=== PATIENT | female | born 1955 | race Caucasian/White ===

== ENCOUNTER 2021-03-08 17:51 | Inpatient (IN) | payer MEDICARE, BC ==
[~2021-03-08] VITALS: Ht 170.2 cm; Wt 55.1 kg
[2021-03-08] VITALS (11 sets, daily range): BP systolic 77–127; BP diastolic 40–81; BMI 20.2
[2021-03-08 18:43] LABS: BASOPHILS 0.2 % (0-2); HEMATOCRIT 41.5 % (36.0-48.0); HEMOGLOBIN 13.9 g/dL (12-16); IMMATURE GRANULOCYTES 0.3 % (0-5); LYMPHOCYTE ABS# 2.34 10x3/uL (1.18-3.74); LYMPHOCYTES 38.1 % (15-50); MCH 34.3 pg (26.0-34.0); MCHC 33.5 g/dL (31.0-37.0); MCV 102.5 fL (80.0-100.0); MEAN PLATELET VOLUME 9.5 fL (7.4-10.4); MONOCYTES 3.9 % (2-11); NEUTROPHIL ABS# 3.47 10x3/uL (1.56-6.13); NEUTROPHILS 56.5 % (40-80); PLATELET COUNT 318 10x3/uL (130-400); RBC 4.05 10x6/uL (4.00-5.40); RDW 13.9 % (11.5-14.5); WBC 6.1 10x3/uL (4.8-10.8)
[2021-03-08 18:59] LABS: CALC OSMOLALITY 274 mosm/kg (275-300); CARBON DIOXIDE 24.8 mmol/L (21.0-32.0); CHLORIDE - SERUM 102 mmol/L (98-107); CREATININE - SERUM 0.9 mg/dL (0.6-1.3); GLUCOSE 82 mg/dL (74-106); POTASSIUM - SERUM 3.9 mmol/L (3.5-5.1); SODIUM 137 mmol/L (136-145); UREA NITROGEN 19 mg/dL (7-18); eGFR NON AFRICAN AMERICAN 66 mL/min (90-120)
[2021-03-08 19:11] LABS: ALBUMIN 3.8 g/dL (3.4-5.0); ALKALINE PHOSPHATASE 94 U/L (30-120); ALT (SGPT) 72 U/L (10-68); AMYLASE - SERUM 56 U/L (25-115); LIPASE 328 U/L (73-393); PROTEIN - SERUM 7.1 g/dL (6.4-8.2); TROPONIN-I < 0.017 ng/mL (0.000-0.060)
--- NOTE | 2021-03-08 20:00 | NUR ---
AROUND 193 PT BLOOD PRESSURE 84/40 MD AWARE AN DBOLUS STARTED.
[2021-03-08 21:15] LABS: APTT 28.6 SECONDS (22.8-39.4); INR 1.11 (0.85-1.17); PROTIME 13.3 SECONDS (11.6-15.0)
--- NOTE | 2021-03-08 21:43 | NUR ---
PT REPORT CALLED TO DEANNE PENA AT THIS TIME WITH VERBAL ACKNOWLEDGEMNT OBTAINED
--- NOTE | 2021-03-08 21:50 | NUR ---
PT ARRIVED FROM ER VIA STRETCHER NURSE MELANI AT BEDSIDE. PT MOVED OER TO THE ICU BED ON HER OWN. PT PLACED ON MONITOR, ADMISSION ASSESSMENT COMPLETED SEE FOR ASSESSMENT FINDINGS. PT ASKED FOR HER PHONE AND GLASSES, CALLED HER BC AND HE STATED THAT HE HAD HER PURSE, CELL PHONE AND GLASSES AT HOME WITH HIM. WILL CONTINUE TO MONITOR PT
[2021-03-08] MEDS ORDERED: PRAVASTATIN SOD10 MG PO (22:12)
[2021-03-08] MEDS ORDERED: PRISTIQ50 MG PO (22:13)
[2021-03-08] MEDS ORDERED: NORVASC2.5 MG PO (22:14)
[2021-03-08] MEDS ORDERED: LISINOPRIL20 MG PO (22:14)
[2021-03-08] MEDS ORDERED: LOPRESSOR25 MG PO (22:15)
[2021-03-08 23:37] LABS: BILIRUBIN NEGATIVE (NEGATIVE); KETONE NEGATIVE (NEGATIVE); NITRITE NEGATIVE (NEGATIVE); UROBILINOGEN NORMAL mg/dL (< 2)
--- NOTE | 2021-03-08 23:40 | NUR ---
2ND IV STARTED LEFT WRIST 18G PIV, ONE TRY, TOLERATED WELL
[2021-03-09] VITALS (23 sets, daily range): BP systolic 102–161; BP diastolic 55–94
[2021-03-09 12:06] LABS: HEMATOCRIT 36.6 % (36.0-48.0); MCH 33.9 pg (26.0-34.0); MCHC 32.8 g/dL (31.0-37.0); MCV 103.4 fL (80.0-100.0); MEAN PLATELET VOLUME 9.3 fL (7.4-10.4); RBC 3.54 10x6/uL (4.00-5.40); RDW 14.1 % (11.5-14.5)
[2021-03-09 12:19] LABS: WBC 10.5 10x3/uL (4.8-10.8)
--- NOTE | 2021-03-09 14:08 | NUR ---
PT HAS INCREASING ANXIETY AND AGITATION THROUGHOUT THE DAY. WORSENING WHEN FAMILY NOT AT BEDSIDE. ATIVAN GIVEN PRN PER ORDERS. PT CONT TO GET OUT OF BED AND VERBALIZES SHE WANTS TO LEAVE. CONFUSED AT TIMES X PLACE AND SITUATION. NOTIFIED DR AVALOS AND ORDER GIVEN TO START PRECEDEX DRIP AND CONT WITH ATIVAN PRN
--- NOTE | 2021-03-09 22:32 | NUR ---
HAS BEEN ON 1MKH PRECEDEX NOW SINCE ATIVAN ADMIN. AISSATOU WELL. WHEN AWAKENS AND ATTEMPTS TO GET OOB IS ABLE TO BE REDIRECTED TO STAY IN BED. WILL CONT TO MONITOR. PT TURNS SELF IN BED. RESP EVEN AND UNLABORRED.
[2021-03-10] VITALS (24 sets, daily range): BP systolic 125–190; BP diastolic 74–112; BMI 20.8
[2021-03-10 04:42] LABS: BASOPHILS 0 % (0-2); EOSINOPHILS 0.3 % (0-7); HEMATOCRIT 36.9 % (36.0-48.0); IMMATURE GRANULOCYTES 0.4 % (0-5); LYMPHOCYTE ABS# 0.91 10x3/uL (1.18-3.74); LYMPHOCYTES 12.6 % (15-50); MCHC 32.5 g/dL (31.0-37.0); MCV 104.5 fL (80.0-100.0); NEUTROPHIL ABS# 5.77 10x3/uL (1.56-6.13); NEUTROPHILS 79.7 % (40-80); PLATELET COUNT 234 10x3/uL (130-400); RBC 3.53 10x6/uL (4.00-5.40); RDW 14.2 % (11.5-14.5)
[2021-03-10 04:44] LABS: WBC 7.2 10x3/uL (4.8-10.8)
[2021-03-10 05:30] LABS: CALCIUM 8.4 mg/dL (8.5-10.1); CARBON DIOXIDE 22.2 mmol/L (21.0-32.0); CHLORIDE - SERUM 107 mmol/L (98-107); GLUCOSE 114 mg/dL (74-106); SODIUM 140 mmol/L (136-145)
[2021-03-10 05:36] LABS: CALC OSMOLALITY 279 mosm/kg (275-300); CREATININE - SERUM 0.6 mg/dL (0.6-1.3); UREA NITROGEN 12 mg/dL (7-18)
[2021-03-10 05:37] LABS: eGFR NON AFRICAN AMERICAN > 90 mL/min (90-120)
--- NOTE | 2021-03-10 07:30 | NUR ---
22 G PIV STARTED TO R FA. NO COMPLAINTS.
--- NOTE | 2021-03-10 07:51 | NUR ---
LAYING IN BED, RESTFUL, BUT CONFUSED. SITTER AT BEDSIDE, REPORTS FALLING ASLEEP AND OBSERVED ASLEEP (SITTER IS). DAUGHTER KAREN CALLED AND UPDATE PROVIDED. SHE REPORTS SHE HAS BEEN TRYING TO REACH THE SITTER. NOW AT BEDSIDE.
--- NOTE | 2021-03-10 07:58 | NUR ---
DR. ENGLISH MONTELONGO, NO NEW ORDERS.
--- NOTE | 2021-03-10 08:01 | HP ---
PATIENT: WES WICK MEDICAL RECORD: [id number] ACCOUNT: [id number] LOCATION:[facility] D.2303 : 53 ADMISSION DATE: 03/08/21 PCP: No PCP HISTORY AND PHYSICAL EXAMINATION REASON FOR ADMISSION: Abdominal pain. HISTORY OF PRESENT ILLNESS: The patient is a 66-year-old female with history of essential hypertension, hyperlipidemia and remote stroke. The patient also has history of peptic ulcer in the past and GERD. She states she has had no GI symptoms recently, but has had gradual weight loss over the last year. She weighed 128 pounds 06/2019. Weighs 126 pounds currently. Weighed 140 pounds 3 years ago. Her daughter saw me with her in the office over a month ago and was concerned about the amount of drinking she was doing of alcohol. Jd denies it, but does drink heavily and smokes as well. She said she had some infraumbilical abdominal pain for about a week and last night while cooking dinner, had acute onset of severe pain that brought her to her knees. It made her short of breath, radiated into her lower back. She denied change in stools, nausea or vomiting. She came to the ED where she was initially normotensive, but after morphine dropped her pressure and that resolved. Her labs were unremarkable and CTA did show evidence of distal gastric edema and pneumoperitoneum. This is concerning for ruptured viscus. She is now admitted to the ICU. At this time, is very tender to touch in the abdomen. PAST MEDICAL HISTORY: Remote CVA with negative MRI in 2012; history of cataracts; depression; GERD; peptic ulcer disease; hyperlipidemia; hypertension; postmenopausal; a metatarsal bone fracture in right foot remotely; tricuspid insufficiency; history of mild multiple sclerosis; anxiety; labial hematoma, traumatic post I&D. PAST SURGICAL HISTORY: Arthroscopic surgery on her knees. She had tubal ligation. She had leg and ankle surgery. ALLERGIES: TETRACYCLINE. SOCIAL HISTORY: Smoking habit 2 pack a day for 40 years. Drinks excessive alcohol, 4-5 glasses of wine and hard liquor daily according to family members. FAMILY HISTORY: Father of colon cancer. Paternal grandmother had breast cancer. CURRENT HOME MEDICATIONS: Pravastatin 80 mg with evening meal, amlodipine 2.5 mg daily, lisinopril 20 mg daily, tramadol 50 mg q.6 hours p.r.n. pain, Pristiq, metoprolol 25 mg daily, clopidogrel 75 mg daily, ferrous sulfate 325 mg daily, clonidine 0.1 mg p.r.n. systolic pressure over 180. REVIEW OF SYSTEMS: GENERAL: Has felt well recently. Denied any illness, except for abdominal pain. HEENT: No recent visual change, sinus congestion, sore throat. RESPIRATORY: Has mild shortness of breath on exertion. Had shortness of breath with the episode of pain that has now resolved. Denies sputum production or hemoptysis. CARDIAC: No exertional chest pain, claudication, or edema. GASTROINTESTINAL: Denies nausea or reflux symptoms. Recently severe abdominal HISTORY AND PHYSICAL [id number] SHAMIKA,WES K pain as mentioned for the last week, crescendoing last night. Denies change in stools, melena, or bright red blood per rectum. GYNECOLOGIC: No vaginal bleeding. ENDOCRINE: Denies polyuria, polydipsia, heat or cold intolerance. MUSCULOSKELETAL: Has chronic arthritis in her low back and knee. INTEGUMENT: Easy bruisability. PSYCHIATRIC: Denies depressed mood. NEUROLOGIC: No history of vascular headaches. Had remote stroke that resolved 100% with negative workup. PHYSICAL EXAMINATION: GENERAL: Alert, somewhat agitated 66-year-old female in the ICU at this time, oriented to person, place and time. VITAL SIGNS: Pulse is initially 141, now 75; respirations are 15; blood pressure is 100/52; sats 95% on room air. The patient is alert and oriented. HEENT: Her eyes are clear. Palpebral conjunctivae are pink. Sclerae are nonicteric. Oropharynx unremarkable. NECK: Supple without bruits. CHEST: Distant breath sounds without wheeze or rales. Increased AP diameter of the thoracic spine is noted. HEART: Regular rate and rhythm. ABDOMEN: Soft, but very tender to touch in the epigastric and periumbilical region. Bowel sounds are hypoactive. RECTAL: No stool in the vault. GYNECOLOGIC: Deferred. EXTREMITIES: No CCE. SKIN: She has multiple ecchymoses on her lower extremities. NEUROLOGIC: Alert, oriented to person, place and time. Cranial nerves were grossly intact. Gait was not tested. PSYCHIATRIC: Admits to some agitation and anxiety at times, but denies severe depressed mood. LABORATORY DATA: Chemistry is normal. Liver functions are normal. Troponin is normal. Lipase was 328, upper limits of normal. PT/INR is 1.1. White count 6.1 thousand, H&H are 13.9 and 41.5 respectively, MCV is 102. Platelet count is adequate 318,000. Abdominal series showed nonspecific bowel gas pattern. CT showed question of thickening of the distal gastric body, antrum, pylorus with small amount of fluids associated with first portion of the duodenum, pneumoperitoneum thought secondary to mild perforation of a peptic ulcer. ASSESSMENT: 1. Probable ruptured viscus with severe abdominal pain. 2. History of peptic ulcer disease and GERD with alcohol excess. 3. Nicotine addiction. 4. Hypertension, hyperlipidemia, remote CVA, depression, weight loss. PLAN: The patient admitted to the ICU. I discussed the case with Dr. Thakur who will see the patient this morning. She is on IV Protonix infusion currently and pain is controlled. We will hold antihypertensives currently due to relative hypotension from morphine. Further workup pending clinical course. TRANSINT:[id number] Voice Confirmation ID: [id number] DOCUMENT ID: [id number] HISTORY AND PHYSICAL [id number] WES WICK TIMOTHY MD at 0801 CC: [id number] DICTATION DATE: 03/09/21 08 OFFICE SERVICES COORDINATOR: 03/09/21 1005 ADM IN [facility] [id number] [place] [address]
--- NOTE | 2021-03-10 10:26 | NUR ---
C/O WANTING WATER. ATTEMPTED TO REORIENT, BUT SHE CANNOT UNDERSTAND. NOW SAYING SHE WANTS TO GO HOME. ATIVAN GIVEN FOR SEDATION AND TITRATED UP PRECEDEX.
--- NOTE | 2021-03-10 10:38 | NUR ---
BP NOW UP TO 190/100. CATAPRES 0.1 MG/DAY FOR 1 WEEK APPLIED TO MEL.
--- NOTE | 2021-03-10 11:08 | NUR ---
BP GOING DOWN AFTER CATAPRES PATCH APPLIED. WILL CONTINUE TO MONITOR. IS NOW CALM AFTER ATIVAN.
--- NOTE | 2021-03-10 11:52 | NUR ---
BP CONTINUES TO BE HIGH. PRN VASOTEC GIVEN.
--- NOTE | 2021-03-10 12:38 | NUR ---
DR. RODGER MONTELONGO. NO NEW ORDERS, BUT REITERATES TO ENSURE THERE IS A SITTER OR FAMILY MEMBER AT ALL TIMES S/T FLIGHT RISK.
--- NOTE | 2021-03-10 13:13 | NUR ---
DAUGHTER IN ROOM, PAINTING MOTHER'S NAILS. TELLS ME THAT SHE WAS ABLE TO GET OFF THE 2 RINGS ON HER L HAND WITH DENTAL FLOSS, BUT UNABLE TO TAKE OF R HAND RING. TELLS ME SHE WILL TAKE THE RINGS TO HER FATHER'S/PT'S HUSBANDS.
--- NOTE | 2021-03-10 13:46 | NUR ---
BP REMAINS HIGH DESPITE TX. LEFT VOICEMAIL WITH DR. AVALOS, NO PHI GIVEN.
--- NOTE | 2021-03-10 13:49 | NUR ---
BLADDER SCAN PERFORMED SHOWS 866. UP TO BSC, 3 PERSON ASSIST. VOIDS 250. BACK TO BED SAFELY. BP 195/110. DR. AVALOS CALLS BACK. ORDERS RECEIVED.
--- NOTE | 2021-03-10 15:52 | NUR ---
FOUND WITH L IV LEAKING, BLOODY. REMOVED, TIP INTACT. 20 G STARTED ABOVE L FA. NO COMPLAINTS.
--- NOTE | 2021-03-10 18:06 | NUR ---
DR. AVALOS CALLS TO CHECK ON HER. REPORTED SHE HAD 1 EXTRA VOID IN BEDPAN ON TOP OF GETTING UP TO BSC AND HAD 1 LARGE VOID, UNMEASURABLE. REPORTED BP DOWN TO 150S/100S.
--- NOTE | 2021-03-10 21:07 | NUR ---
AWAKENED QUICKLY. AGITATED. STATES SHE IS NOT SUPPOSE TO BE HERE. ATTEMPTED TO REORIENT AND EXPLAIN TO PT AND SHE YELLS AND TRIES TO GET OOB. ATIVAN DOSE GIVEN ORDERED PRN. WILL CONT TO MONITOR.
[2021-03-11] VITALS (23 sets, daily range): BP systolic 133–186; BP diastolic 7–125
[2021-03-11 05:01] LABS: BASOPHILS 0.1 % (0-2); EOSINOPHILS 1.2 % (0-7); HEMATOCRIT 35.8 % (36.0-48.0); HEMOGLOBIN 12.2 g/dL (12-16); IMMATURE GRANULOCYTES 0.3 % (0-5); LYMPHOCYTE ABS# 1.03 10x3/uL (1.18-3.74); MCH 34.4 pg (26.0-34.0); MCHC 34.1 g/dL (31.0-37.0); MEAN PLATELET VOLUME 9.7 fL (7.4-10.4); MONOCYTES 5.2 % (2-11); NEUTROPHIL ABS# 5.38 10x3/uL (1.56-6.13); NEUTROPHILS 78.2 % (40-80); PLATELET COUNT 230 10x3/uL (130-400); RBC 3.55 10x6/uL (4.00-5.40); RDW 13.6 % (11.5-14.5); WBC 6.9 10x3/uL (4.8-10.8)
[2021-03-11 05:21] LABS: MCV 100.8 fL (80.0-100.0)
[2021-03-11 05:47] LABS: ALBUMIN 2.5 g/dL (3.4-5.0); ALKALINE PHOSPHATASE 69 U/L (30-120); ALT (SGPT) 31 U/L (10-68); CALCIUM 8.3 mg/dL (8.5-10.1); CARBON DIOXIDE 20.5 mmol/L (21.0-32.0); CHLORIDE - SERUM 104 mmol/L (98-107); CREATININE - SERUM 0.5 mg/dL (0.6-1.3); GLUCOSE 119 mg/dL (74-106); PROTEIN - SERUM 5.8 g/dL (6.4-8.2); SODIUM 138 mmol/L (136-145); eGFR NON AFRICAN AMERICAN > 90 mL/min (90-120)
[2021-03-11 05:51] LABS: CALC OSMOLALITY 274 mosm/kg (275-300); POTASSIUM - SERUM 3.1 mmol/L (3.5-5.1); UREA NITROGEN 7 mg/dL (7-18)
--- NOTE | 2021-03-11 09:40 | NUR ---
DAUGHTER AT BEDSIDE, PT NOTICABLY BECOMING MORE AGITATED AND WITH TREMORS IN FINGERS. PRN ATIVAN GIVEN. FALL ALARM ON.
--- NOTE | 2021-03-11 11:28 | NUR ---
HAS 1 LARGE VOID IN BED EMMANUEL. CLEANED AND BED CHANGED. AT BEDSIDE.
--- NOTE | 2021-03-11 12:44 | NUR ---
Nutrition Follow-up: NPO since admit (x 3 days). Nursing reports active BS. Wt: 134# (03/11) Labs noted: K+ 3.1, Glu 119, Ca 8.3, Alb 2.5 Meds noted: Protonix, banana bag @ 125, electrolyte protocol -If unable to advance diet, rec initiate Procal @ 75 mL/hr; provides 441 kcal (21-29% est needs) & 54 g protein (68-90% est needs) daily. -RD follow-up: 03/14
--- NOTE | 2021-03-11 16:15 | NUR ---
HAS HAD MULTIPLE LARGE VOIDS TODAY. ATTEMPTED PUREWICK, BUT, PER PT'S DAUGHTER, SHE GRABBED AND THREW IT. IS ABLE TO TELL ME AT TIMES WHEN SHE NEEDS TO GO, BUT HAS HAD MULTIPLE INCONTINENT EPISODES.
[2021-03-12] VITALS (24 sets, daily range): BP systolic 123–182; BP diastolic 76–116
--- NOTE | 2021-03-12 04:34 | NUR ---
0350- PATIENT O2 SAT DECREASED TO 89% WHILE SLEEPING, SLIGHTLY INCREASES UPON AWAKENING. PATIENT PLACED ON O2 @ 2L NC. Mary WINSTON RN
[2021-03-12 07:18] LABS: BASOPHILS 0.2 % (0-2); EOSINOPHILS 2.3 % (0-7); HEMATOCRIT 36.6 % (36.0-48.0); IMMATURE GRANULOCYTES 0.7 % (0-5); LYMPHOCYTE ABS# 0.86 10x3/uL (1.18-3.74); LYMPHOCYTES 19.7 % (15-50); MCH 33.3 pg (26.0-34.0); MCHC 32.8 g/dL (31.0-37.0); MCV 101.7 fL (80.0-100.0); MEAN PLATELET VOLUME 9.8 fL (7.4-10.4); NEUTROPHIL ABS# 3.01 10x3/uL (1.56-6.13); NEUTROPHILS 69.1 % (40-80); PLATELET COUNT 229 10x3/uL (130-400); WBC 4.4 10x3/uL (4.8-10.8)
[2021-03-12 07:40] LABS: ALBUMIN 2.5 g/dL (3.4-5.0); ALKALINE PHOSPHATASE 65 U/L (30-120); ALT (SGPT) 30 U/L (10-68); CALC OSMOLALITY 276 mosm/kg (275-300); CALCIUM 8.4 mg/dL (8.5-10.1); CARBON DIOXIDE 24.1 mmol/L (21.0-32.0); CHLORIDE - SERUM 105 mmol/L (98-107); CREATININE - SERUM 0.4 mg/dL (0.6-1.3); GLUCOSE 114 mg/dL (74-106); POTASSIUM - SERUM 3.4 mmol/L (3.5-5.1); PROTEIN - SERUM 5.5 g/dL (6.4-8.2); SODIUM 139 mmol/L (136-145); UREA NITROGEN 6 mg/dL (7-18); eGFR NON AFRICAN AMERICAN > 90 mL/min (90-120)
[2021-03-13] VITALS (23 sets, daily range): BP systolic 109–175; BP diastolic 71–116
[2021-03-13 04:31] LABS: BASOPHILS 0.5 % (0-2); EOSINOPHILS 2.7 % (0-7); HEMATOCRIT 36.9 % (36.0-48.0); HEMOGLOBIN 12.4 g/dL (12-16); IMMATURE GRANULOCYTES 0.7 % (0-5); LYMPHOCYTE ABS# 0.78 10x3/uL (1.18-3.74); LYMPHOCYTES 18.9 % (15-50); MCH 33.7 pg (26.0-34.0); MCHC 33.6 g/dL (31.0-37.0); MCV 100.3 fL (80.0-100.0); MEAN PLATELET VOLUME 9.4 fL (7.4-10.4); MONOCYTES 11.9 % (2-11); NEUTROPHILS 65.3 % (40-80); PLATELET COUNT 217 10x3/uL (130-400); RBC 3.68 10x6/uL (4.00-5.40); RDW 13.8 % (11.5-14.5); WBC 4.1 10x3/uL (4.8-10.8)
[2021-03-13 05:03] LABS: ALBUMIN 2.5 g/dL (3.4-5.0); ALKALINE PHOSPHATASE 63 U/L (30-120); ALT (SGPT) 26 U/L (10-68); BILIRUBIN - TOTAL 0.39 mg/dL (0.2-1.3); CALC OSMOLALITY 273 mosm/kg (275-300); CALCIUM 8.5 mg/dL (8.5-10.1); CARBON DIOXIDE 26.2 mmol/L (21.0-32.0); CHLORIDE - SERUM 102 mmol/L (98-107); CREATININE - SERUM 0.3 mg/dL (0.6-1.3); GLUCOSE 138 mg/dL (74-106); POTASSIUM - SERUM 3.2 mmol/L (3.5-5.1); PROTEIN - SERUM 5.5 g/dL (6.4-8.2); SODIUM 137 mmol/L (136-145); eGFR NON AFRICAN AMERICAN > 90 mL/min (90-120)
[2021-03-13 05:06] LABS: UREA NITROGEN 8 mg/dL (7-18)
[2021-03-13 12:38] LABS: CALC OSMOLALITY 274 mosm/kg (275-300); CALCIUM 8.9 mg/dL (8.5-10.1); CARBON DIOXIDE 25.9 mmol/L (21.0-32.0); CHLORIDE - SERUM 103 mmol/L (98-107); CREATININE - SERUM 0.3 mg/dL (0.6-1.3); GLUCOSE 122 mg/dL (74-106); SODIUM 138 mmol/L (136-145); UREA NITROGEN 6 mg/dL (7-18); eGFR NON AFRICAN AMERICAN > 90 mL/min (90-120)
[2021-03-13 12:45] LABS: POTASSIUM - SERUM 3.9 mmol/L (3.5-5.1)
[2021-03-14] VITALS (24 sets, daily range): BP systolic 129–181; BP diastolic 82–118
[2021-03-14 04:16] LABS: BASOPHILS 0.2 % (0-2); EOSINOPHILS 1.8 % (0-7); HEMATOCRIT 38.8 % (36.0-48.0); HEMOGLOBIN 13.1 g/dL (12-16); IMMATURE GRANULOCYTES 0.6 % (0-5); LYMPHOCYTES 18.5 % (15-50); MCH 33.9 pg (26.0-34.0); MCHC 33.8 g/dL (31.0-37.0); MCV 100.3 fL (80.0-100.0); MEAN PLATELET VOLUME 9.6 fL (7.4-10.4); MONOCYTES 9.9 % (2-11); NEUTROPHIL ABS# 3.36 10x3/uL (1.56-6.13); PLATELET COUNT 213 10x3/uL (130-400); RBC 3.87 10x6/uL (4.00-5.40); RDW 13.9 % (11.5-14.5); WBC 4.9 10x3/uL (4.8-10.8)
[2021-03-14 04:18] LABS: CALCIUM 8.9 mg/dL (8.5-10.1); CARBON DIOXIDE 27.8 mmol/L (21.0-32.0); CHLORIDE - SERUM 104 mmol/L (98-107); GLUCOSE 143 mg/dL (74-106); POTASSIUM - SERUM 3.6 mmol/L (3.5-5.1); SODIUM 140 mmol/L (136-145)
[2021-03-14 04:28] LABS: CALC OSMOLALITY 278 mosm/kg (275-300); CREATININE - SERUM 0.4 mg/dL (0.6-1.3); UREA NITROGEN 8 mg/dL (7-18); eGFR NON AFRICAN AMERICAN > 90 mL/min (90-120)
--- NOTE | 2021-03-14 05:52 | NUR ---
PATIENT WITH AGITATION OFF/ON THROUGHOUT NIGHT. MEDICATED WITH PRN MEDICATIONS AND REDIRECTED. Mary WINSTON RN
--- NOTE | 2021-03-14 09:37 | NUR ---
Nutrition follow-up: Pt remains NPO; extremely agitated per nurse NPO due to perforated viscus ProcalAmine PPN now infusing @ 75 ml/hr Labs reviewed Wt: 126# No BM charted Recommend continue ProcalAmine PPN until diet advanced RDN follow-up: 03/16/21
--- NOTE | 2021-03-14 19:21 | NUR ---
PT CLIMBING OUT BED WITH BILATERAL RESTRAINTS ON AND FAMILY AND SITTER ATTEMPTING TO HELP HER BACK TO BED. PRN MEDS GIVEN AND ASSISTED PT BACK TO BED AND RESTRAINTS ADJUSTED. WILL CONT TO MONITOR. CONFUSED. THINKS HER BEST FRIEND IS NOT HELPING HER. THINKS SHE IS . WILL CONT TO MONITOR.
[2021-03-15] VITALS (23 sets, daily range): BP systolic 124–185; BP diastolic 76–145
--- NOTE | 2021-03-15 20:00 | NUR ---
INCONTINENT OF URINE, COMPLETE LINEN CHANGE AND BATH GIVEN. PT REPOSITIONED WITH PROMINENCES BRIDGED, BILATERAL WRIST RESTRAINTS IN USE. PT CONFUSED, UNABLE TO ANSWER QUESTIONS, STATES SHE IS NOT SUPPOSED TO BE HERE- ATTEMPTS TO REORIENT UNSUCCESSFUL. BED ALARM ON. FAMILY SITTER AT BEDSIDE.
[2021-03-16] VITALS (29 sets, daily range): BP systolic 128–189; BP diastolic 73–104
--- NOTE | 2021-03-16 02:40 | NUR ---
PT TRYING TO GET OOB- BILATERAL WRIST RESTRAINTS ON, REORIENTATION ATTEMPTED. PT REPOSITIONED WITH PROMINENCES BRIDGED. FAMILY SITTER AT BEDSIDE. BED ALARM ON, ROOM VISIBLE FROM NURSES STATION. CPOC
[2021-03-16 05:16] LABS: BASOPHILS 0.6 % (0-2); EOSINOPHILS 2.1 % (0-7); HEMOGLOBIN 13.2 g/dL (12-16); LYMPHOCYTES 16.7 % (15-50); MCHC 33.7 g/dL (31.0-37.0); MEAN PLATELET VOLUME 7.4 fL (7.4-10.4); NEUTROPHILS 66.6 % (40-80); RBC 3.86 10x6/uL (4.00-5.40); RDW 14.8 % (11.5-14.5); WBC 5.1 10x3/uL (4.8-10.8)
[2021-03-16 05:32] LABS: CALC OSMOLALITY 284 mosm/kg (275-300); CALCIUM 9.2 mg/dL (8.5-10.1); CARBON DIOXIDE 27.3 mmol/L (21.0-32.0); CHLORIDE - SERUM 107 mmol/L (98-107); CREATININE - SERUM 0.4 mg/dL (0.6-1.3); GLUCOSE 117 mg/dL (74-106); POTASSIUM - SERUM 3.7 mmol/L (3.5-5.1); SODIUM 143 mmol/L (136-145); UREA NITROGEN 9 mg/dL (7-18); eGFR NON AFRICAN AMERICAN > 90 mL/min (90-120)
[2021-03-16 05:34] LABS: PLATELET COUNT 268 10x3/uL (130-400)
--- NOTE | 2021-03-16 12:51 | NUR ---
Nutrition follow-up: Pt continues NPO due to confusion and agitation at this time per speech pathologist. ProcalAmine PPN @ 75 ml/hr Labs reviewed Reglan discontinued Wt: 126# Per nurse, pt seems to be more alert this afternoon. RDN will monitor patients diet advancement, tolerance and progress toward nutrition goals. Follow-up: 03/18/21
--- NOTE | 2021-03-16 19:40 | NUR ---
REC'D PT RESTING IN BED ON O2 @ 4LITERS, PT AWAKE AND ALERT TO PERSON ONLY AT THIS TIME, RIGHT FOREARM PIV WITH PROCALAMINE @ 75CC/HR, LEFT FOREARM PIV WITH PIGTAIL PROTONIX @ 10CC/HR AND PRECEDEX @ 0.9 OR 13.5CC, WEANING TOLERATED PER ORDER, SITTER AT BS, PT DENIES PAIN OR NEEDS, ABD SOFT, HYPOACTIVE BS, ICE CHIPS PROVIDED ON REQUEST.
--- NOTE | 2021-03-16 23:00 | NUR ---
PT INCONTINENT OF YELLOW URINE, PARTIAL BATH AND LINEN CHANGE PROVIDED, PT REPOSITIONED UP IN BED FOR COMFORT, BELIEVES THEIR IS BLOOD ON THE CEILING, ATTEMPTED TO REORIENT PT, SITTER REMAINS AT BS, BED IN LOW POSITION.
[2021-03-17] VITALS (24 sets, daily range): BP systolic 141–179; BP diastolic 80–114; Ht 170.2 cm; Wt 55.1 kg
--- NOTE | 2021-03-17 01:15 | NUR ---
PT INCONTINENT OF STOOL AND URINE, COMPLETE BATH AND LINEN CHANGE PROVIDED, PT SLEPT FOR A SHORT PERIOD OF TIME BUT REMAINS DISORIENTED, ASKING FOR SCISSORS TO REMOVE RESTRAINTS.
[2021-03-17 09:10] LABS: BASOPHILS 0.6 % (0-2); EOSINOPHILS 0.3 % (0-7); HEMATOCRIT 37.5 % (36.0-48.0); HEMOGLOBIN 12.6 g/dL (12-16); LYMPHOCYTES 14.5 % (15-50); MCH 33.7 pg (26.0-34.0); MCHC 33.5 g/dL (31.0-37.0); MCV 100.6 fL (80.0-100.0); MONOCYTES 15.3 % (2-11); NEUTROPHILS 69.3 % (40-80); PLATELET COUNT 302 10x3/uL (130-400); RBC 3.73 10x6/uL (4.00-5.40); RDW 14.5 % (11.5-14.5)
[2021-03-17 09:11] LABS: WBC 7.8 10x3/uL (4.8-10.8)
[2021-03-17 09:27] LABS: CALC OSMOLALITY 273 mosm/kg (275-300); CALCIUM 8.7 mg/dL (8.5-10.1); CARBON DIOXIDE 24.2 mmol/L (21.0-32.0); CHLORIDE - SERUM 103 mmol/L (98-107); CREATININE - SERUM 0.5 mg/dL (0.6-1.3); GLUCOSE 113 mg/dL (74-106); POTASSIUM - SERUM 3.8 mmol/L (3.5-5.1); SODIUM 137 mmol/L (136-145); UREA NITROGEN 9 mg/dL (7-18); eGFR NON AFRICAN AMERICAN > 90 mL/min (90-120)
--- NOTE | 2021-03-17 10:03 | NUR ---
Pt resting in bed with eyes closed at this time. Assessment per flow sheet, family at bedside. The Pt is tolerating clear liquids at this time. Dr. Garzon and Dr. Gil have seen the Pt and made their recomendations.
--- NOTE | 2021-03-17 19:15 | NUR ---
REPORT REC'D AT BS, PT CONFUSED BELIEVES SHE IS AT HOME AND BEING HELD AGAINST HER WILL, SITTER AT BS, SITTER AND AM AND PM NURSES ATTEMPTING TO REORIENT PATIENT, PT CONTINUES TO ATTEMPT TO CLIMB OUT OF BED, LEFT FOREARM PIV WITH PROTONIX INFUSING @ 8MG/HR OR 10CC, RIGHT HAND PIV WITH PROCALAMINE @ 75CC/HR, PT INCONTINENT OF URINE, COMPLETE LINEN CHANGE PROVIDED, PT REPOSITOINED IN BED FOR COMFORT.
--- NOTE | 2021-03-17 21:00 | NUR ---
PT CONTINUES TO BE ARGUMENTATIVE AT TIMES, BELIEVES IT IS SNOWING OUTSIDE AND HER CATS ARE FREEZING, ATTEMPTS TO REORIENT AND SHOWED PT THE CURRENT WEATHER, CONTINUES TO ARGUE ABOUT THE WEATHER AND ATTEMTS TO GET OOB, COMPLAINS OF SEVERE PAIN TO LEFT FOREARM PIV AND RIGHT HAND PIV, LEFT FOREARM PIV INFILTRATED, PROTONIX STOPPED AND WARM COMPRESS APPLIED, LEFT FOREARM PIV REMOVED WITHOUT DIFFICULTY, 20GAUGE RESITED TO RIGHT FOREARM X 1 ATTEMPT, PROCALAMINE MOVED TO SITE AND RIGHT HAND PIV DC'D, PT BECOMING MORE AGITATED AND ATTEMPTING TO GET OOB, INCONTINENT OF URINE, PT CLEANED AND COMPLETE BED LINEN CHANGED, PT REPOSITIONED FOR COMFORT.
--- NOTE | 2021-03-17 22:30 | NUR ---
PT SITTING UP IN BED WANTING TO "GO OUTSIDE AND GET MY CATS", ATTEMPTED TO EXPLAIN TO PT THAT SHE WAS IN THE HOSPITAL AND THERE WERE NO CATS HERE, SITTER IN ROOM ATTEMPTING TO CALM AND REDIRECT PATIENT.
[2021-03-18] VITALS (12 sets, daily range): BP systolic 135–176; BP diastolic 78–112
--- NOTE | 2021-03-18 | NUR ---
PT PUSHING AT STAFF AND SITTER ATTEMPTING TO GET OOB, ATTEMPTING TO CHEW ON IV LINES AND MONITORING EQUIPMENT, BILAT SOFT WRIST RESTRAINTS REAPPLIED AND PT REPOSITIONED FOR COMFORT, WILL MONITOR CLOSELY FOR CHANGES.
--- NOTE | 2021-03-18 02:00 | NUR ---
PT LYING IN BED, STATES "SHE SEES SNAKES ON THE CEILING", ATTEMPTS TO REORIENT UNSUCCESSFUL, PT INCONTINENT IN BED, PARTIAL BATH AND LINEN CHANGE PROVIDED.
[2021-03-18 05:12] LABS: ALBUMIN 3.3 g/dL (3.4-5.0); ALKALINE PHOSPHATASE 83 U/L (30-120); ALT (SGPT) 33 U/L (10-68); BILIRUBIN - TOTAL 0.43 mg/dL (0.2-1.3); CALC OSMOLALITY 276 mosm/kg (275-300); CALCIUM 9.3 mg/dL (8.5-10.1); CARBON DIOXIDE 24.3 mmol/L (21.0-32.0); CHLORIDE - SERUM 104 mmol/L (98-107); CREATININE - SERUM 0.6 mg/dL (0.6-1.3); GLUCOSE 129 mg/dL (74-106); POTASSIUM - SERUM 3.4 mmol/L (3.5-5.1); PROTEIN - SERUM 7.2 g/dL (6.4-8.2); SODIUM 138 mmol/L (136-145); UREA NITROGEN 10 mg/dL (7-18); eGFR NON AFRICAN AMERICAN > 90 mL/min (90-120)
--- NOTE | 2021-03-18 07:15 | NUR ---
REPORT RECEIVED. ASSESSMENT COMPLETE PER FLOW SHEET. AT BEDSIDE GIVEN UPDATE. STATED OKAY. PT STATED NAME, PLACE AND WHAT YEAR IT WAS. PT HILUCINATING STATING SHE HAD 25 KITTENS IN THE ROOM TO TAKE CARE OF, BUGS IN WINDOW, AND IT WAS SNOWING ALL NIGHT. PT ALSO THROWING RACIAL SLURS STATING SHE HATED MARIA HER SITTER IN THE ROOM. PT STATING SHE IS GOING TO ALEX EVERYONE. ATTEMPTED TO ORIENT PATIENT WITH NO SUCCESS. PT ASSISTED ONTO BEDPAN AT THIS TIME AND DENIES FURTHER NEEDS. CALL LIGHT WITH IN REACH, BED IN LOWEST POSITION, AND BED ALARM ON. PT WITHIN VIEWS SITE OF NURSES STATION.
--- NOTE | 2021-03-18 07:36 | NUR ---
DR AVALOS AT BEDSIDE GIVEN UPDATE. NO NEW ORDERS AT THIS TIME.
--- NOTE | 2021-03-18 07:50 | NUR ---
SPOKE WITH DR ENGLISH TERRY USE OF ATIVAN WITH LIBRIUM STATED TO ADMINISTER ATIVAN NEEDED PT ANXIOUS AND AGGITATED HR 140 BP 170/100 AND ATTEMPTING TO GET OOB AND LEAVE. STATED OKAY
--- NOTE | 2021-03-18 08:48 | NUR ---
DAUGHTER KAREN AT BEDSIDE ANGRY AND UPSET REGAURDING VISITING POLICY, AND MULTIPLE THINGS REGAURDING PT CARE. SANDRA CLERICAL ADMINISTRATIVE ASSISTANT NURSE AND JOSE RAFAEL CLUB ATTENDANT GIVEN UPDATE. CASE MANAGEMENT GIVEN UPDATE PT FAMILY WISHES TO TRANSFER TO [facility] AND [facility] HAS AN ACCEPTING DR. DR AVALOS PAGEAdrian GIVEN UPDATE.
--- NOTE | 2021-03-18 09:10 | NUR ---
DR AVALOS SPOKE WITH KAREN THE DAUGTHER OVER THE PHONE AT GREAT LENGTH. KAREN STILL WISHES TO TRANSFER AT THIS TIME. AWAITING CASE MANAGEMENT.
--- NOTE | 2021-03-18 10:43 | MORECARE ---
CASE MANAGEMENT DISCHARGE SUMMARY PATIENT: WES WICK UNIT: [id number] ADM DATE: 03/08/21 AGE: 66 : 53 SEX: F [facility] AUTHOR: VICK GUPTA PHYSICIAN: REFERRING PHYSICIAN: JOSE AVALOS MD DATE OF SERVICE: 03/18/21 Case Management Discharge Planning Summary DCP REVIEW SUMMARY ANTICIPATED D/C DATE: EXPECTED LOS : CASE STATUS: DCP Initiated INITIAL REVIEW: 03/08/2021 INITIAL REVIEWER: Natalie Huitron FINAL DISCHARGE DISPOSITION: : FINAL REVIEWER: FINAL REVIEW DATE: DCP Focus Questions & Answers QUESTION: ANSWER : PATIENT: WES WICK ENCOUNTER: [id number] MEDICAL RECORD#: [id number] ADMISSION DATE: 03/08/2021 DISCHARGE DATE: ATTENDING MD: JOSE MORENO : AGE: 66 MARITAL STATUS: M DC PLAN ID: [id number] FACILITY: [facility] PRINTED ON: 03/18/21 10:42 CT All edits/amendments must be made on the electronic document DICTATION DATE: 03/18/21 104 CHIEF DESIGN ENGINEER: DM 03/18/21 1042 RPT#: [id number] DC DATE: STATUS: ADM IN [facility] [address] [place] [address] END OF REPORT
--- NOTE | 2021-03-18 11:07 | MORECARE ---
CASE MANAGEMENT DISCHARGE SUMMARY PATIENT: WES WICK UNIT: [id number] ADM DATE: 03/08/21 AGE: 66 : 53 SEX: F ROOM/BED: D.2303 AUTHOR: ALONSO,DOC PHYSICIAN: REFERRING PHYSICIAN: JOSE GARZON MD DATE OF SERVICE: 03/18/21 Case Management Discharge Planning Summary COMMENTS ENTERED DATE: 03/18/21 10:42 CT COMMENT TYPE: Discharge Planning REVIEWER: Natalie Huitron CM received call from ICU stating patient family has requested transfer to [facility] and that Dr. Garzon is aware of family request. CM called and spoke with Elliot at [facility] abour request for transfer. CM faxed face sheet as requested. CM called [facility] to obtain rate quote for lateral transfer. Spoke with Gabrielle at [facility]. CM was told that estimated cost would be $800.00. [facility] will accept 1/2 payment from family at time of transport. States they will have family sign ABN and they will bill family for other 1/2 payment. CYNDI received call from Dr. Chai Sewell stating he wanted to know if Dr. Garzon wanted to continue to follow patient at [facility] or if he wanted Dr Paula to be the admitting physician. CYNDI called and spoke with Dr. Garzon. Was instructed to have Dr. Paula be that admitting physician at [facility]. CM called Dr. Chai Sewell and informed him on what Dr. Garzon said. Dr Chai Clement verbalized understanding. States he will let their house sup know that he will accept patient. CM received call from Elliot at [facility]. [facility] patient will be going to room 372. Nurse to call report to [phone]. CM informed ICU nurse, Citlalli, that patient has been accepted to [facility]. Gave Citlalli room number and phone number to call report to. After Citlalli finished calling report to [facility], CYNDI called [facility] for transport. CM met with patient family and informed them that patient has been accepted to [facility] room 372 and ambulance has been called for transport. CM informed family of financial obligation with ambulance transport. Family verbalized understanding and satisfaction with discharge plan. CM will continue to follow and assist as needed with discharge planning / needs. DCP REVIEW SUMMARY ANTICIPATED D/C DATE: EXPECTED LOS : CASE STATUS: DCP Initiated INITIAL REVIEW: 03/08/2021 INITIAL REVIEWER: Natalie Huitron FINAL DISCHARGE DISPOSITION: : FINAL REVIEWER: FINAL REVIEW DATE: DCP Focus Questions & Answers QUESTION: ANSWER : PATIENT: WES WICK ENCOUNTER: [id number] MEDICAL RECORD#: [id number] ADMISSION DATE: 03/08/2021 DISCHARGE DATE: ATTENDING MD: JOSE MORENO : AGE: 66 MARITAL STATUS: M DC PLAN ID: [id number] FACILITY: [facility] PRINTED ON: 03/18/21 11:07 CT All edits/amendments must be made on the electronic document DICTATION DATE: 03/18/211106 PRECISION THREAD GRINDER OPERATOR: DM 03/18/211106 RPT#: [id number] DC DATE: STATUS: ADM IN [facility] [address] [place] [address] END OF REPORT
--- NOTE | 2021-03-18 12:01 | NUR ---
PT LEFT VIA AMBULANCE VSS UPON DISCHARGE. BP 157/98 HR 124 RR 24 97% ON RA. NEEDS MET.
--- NOTE | 2021-03-18 12:40 | MORECARE ---
CASE MANAGEMENT DISCHARGE SUMMARY PATIENT: WES WICK UNIT: [id number] ADM DATE: 03/08/21 AGE: 66 : 51 SEX: F ROOM/BED: D.2303 AUTHOR: ALONSO,DOC PHYSICIAN: REFERRING PHYSICIAN: JOSE GARZON MD DATE OF SERVICE: 03/18/21 Case Management Discharge Planning Summary COMMENTS ENTERED DATE: 03/18/21 10:42 CT COMMENT TYPE: Discharge Planning REVIEWER: Natalie Huitron CM received call from ICU stating patient family has requested transfer to [facility] and that Dr. Garzon is aware of family request. CM called and spoke with Elliot at [facility] abour request for transfer. CM faxed face sheet as requested. CM called [facility] to obtain rate quote for lateral transfer. Spoke with Gabrielle at [facility] [employer]. CM was told that estimated cost would be $800.00. [facility] will accept 1/2 payment from family at time of transport. States they will have family sign ABN and they will bill family for other 1/2 payment. CYNDI received call from Dr. Chai Sewell stating he wanted to know if Dr. Garzon wanted to continue to follow patient at [facility] or if he wanted Dr Paula to be the admitting physician. CYNDI called and spoke with Dr. Garzon. Was instructed to have Dr. Paula be that admitting physician at [facility]. CM called Dr. Chai Sewell and informed him on what Dr. Garzon said. Dr Chai Clement verbalized understanding. States he will let their house sup know that he will accept patient. CM received call from Elliot at [facility]. [facility] patient will be going to room 372. Nurse to call report to [phone]. CM informed ICU nurse, Citlalli, that patient has been accepted to [facility]. Gave Citlalli room number and phone number to call report to. After Citlalli finished calling report to [facility], CYNDI called [facility] for transport. CM met with patient family and informed them that patient has been accepted to [facility] room 372 and ambulance has been called for transport. CM informed family of financial obligation with ambulance transport. Family verbalized understanding and satisfaction with discharge plan. CM will continue to follow and assist as needed with discharge planning / needs. DCP REVIEW SUMMARY ANTICIPATED D/C DATE: EXPECTED LOS : CASE STATUS: DCP Initiated INITIAL REVIEW: 03/08/2021 INITIAL REVIEWER: Natalie Huitron FINAL DISCHARGE DISPOSITION: : FINAL REVIEWER: FINAL REVIEW DATE: DCP Focus Questions & Answers QUESTION: ANSWER : PATIENT: WES WICK ENCOUNTER: [id number] MEDICAL RECORD#: [id number] ADMISSION DATE: 03/08/2021 DISCHARGE DATE: 03/18/2021 ATTENDING MD: JOSE MORENO : AGE: 66 MARITAL STATUS: M DC PLAN ID: [id number] FACILITY: [facility] PRINTED ON: 03/18/21 12:40 CT All edits/amendments must be made on the electronic document DICTATION DATE: 03/18/21 124 FISHING MANAGER: ERWIN 03/18/21 1240 RPT#: [id number] DC DATE:03/18/21 STATUS: DIS IN [facility] [address] [place] [address] END OF REPORT
--- NOTE | 2021-03-18 16:06 | MORECARE ---
CASE MANAGEMENT DISCHARGE SUMMARY PATIENT: WES WICK UNIT: [id number] ADM DATE: 03/08/21 AGE: 66 : 53 SEX: F ROOM/BED: D.2303 AUTHOR: ALONSO,DOC PHYSICIAN: REFERRING PHYSICIAN: JOSE GARZON MD DATE OF SERVICE: 03/18/21 Case Management Discharge Planning Summary COMMENTS ENTERED DATE: 03/18/21 10:42 CT COMMENT TYPE: Discharge Planning REVIEWER: Natalie Huitron CM received call from ICU stating patient family has requested transfer to [facility] and that Dr. Garzon is aware of family request. CM called and spoke with Elliot at [facility] abour request for transfer. CM faxed face sheet as requested. CM called [facility] to obtain rate quote for lateral transfer. Spoke with Gabrielle at [facility] [employer]. CM was told that estimated cost would be $800.00. [facility] will accept 1/2 payment from family at time of transport. States they will have family sign ABN and they will bill family for other 1/2 payment. CYNDI received call from Dr. Chai Sewell stating he wanted to know if Dr. Garzon wanted to continue to follow patient at [facility] or if he wanted Dr Paula to be the admitting physician. CYNDI called and spoke with Dr. Garzon. Was instructed to have Dr. Paula be that admitting physician at [facility]. CM called Dr. Chai Sewell and informed him on what Dr. Garzon said. Dr Chai Clement verbalized understanding. States he will let their house sup know that he will accept patient. CM received call from Elliot at [facility]. [facility] patient will be going to room 372. Nurse to call report to [phone]. CM informed ICU nurse, Citlalli, that patient has been accepted to [facility]. Gave Citlalli room number and phone number to call report to. After Citlalli finished calling report to [facility], CYNDI called [facility] for transport. CM met with patient family and informed them that patient has been accepted to [facility] room 372 and ambulance has been called for transport. CM informed family of financial obligation with ambulance transport. Family verbalized understanding and satisfaction with discharge plan. CM will continue to follow and assist as needed with discharge planning / needs. DCP REVIEW SUMMARY ANTICIPATED D/C DATE: EXPECTED LOS : CASE STATUS: DCP Initiated INITIAL REVIEW: 03/08/2021 INITIAL REVIEWER: Natalie Huitron FINAL DISCHARGE DISPOSITION: : FINAL REVIEWER: FINAL REVIEW DATE: DCP Focus Questions & Answers QUESTION: ANSWER : PATIENT: WES WICK ENCOUNTER: [id number] MEDICAL RECORD#: [id number] ADMISSION DATE: 03/08/2021 DISCHARGE DATE: 03/18/2021 ATTENDING MD: JOSE MORENO : AGE: 66 MARITAL STATUS: M DC PLAN ID: [id number] FACILITY: [facility] PRINTED ON: 03/18/21 16:06 CT All edits/amendments must be made on the electronic document DICTATION DATE: 03/18/211605 RESIN SHAVER: ERWIN 03/18/211605 RPT#: [id number] DC DATE:03/18/21 STATUS: DIS IN [facility] [address] [place] [address] END OF REPORT
--- NOTE | 2021-03-21 08:25 | MORECARE ---
CASE MANAGEMENT DISCHARGE SUMMARY PATIENT: WES WICK UNIT: [id number] ADM DATE: 03/08/21 AGE: 66 : 53 SEX: F ROOM/BED: D.2303 AUTHOR: ALONSO,DOC PHYSICIAN: REFERRING PHYSICIAN: JOSE GARZON MD DATE OF SERVICE: 03/21/21 Case Management Discharge Planning Summary COMMENTS ENTERED DATE: 03/18/21 10:42 CT COMMENT TYPE: Discharge Planning REVIEWER: Natalie Huitron CM received call from ICU stating patient family has requested transfer to [facility] and that Dr. Garzon is aware of family request. CM called and spoke with Elliot at [facility] abour request for transfer. CM faxed face sheet as requested. CM called [facility] to obtain rate quote for lateral transfer. Spoke with Gabrielle at [facility] [employer] CM was told that estimated cost would be $800.00. [facility] will accept 1/2 payment from family at time of transport. States they will have family sign ABN and they will bill family for other 1/2 payment. CYNDI received call from Dr. Chai Sewell stating he wanted to know if Dr. Garzon wanted to continue to follow patient at [facility] or if he wanted Dr Paula to be the admitting physician. CYNDI called and spoke with Dr. Garzon. Was instructed to have Dr. Paula be that admitting physician at [facility]. CM called Dr. Chai Sewell and informed him on what Dr. Garzon said. Dr Chai Clement verbalized understanding. States he will let their house sup know that he will accept patient. CM received call from Elliot at [facility]. [facility] patient will be going to room 372. Nurse to call report to [phone]. CM informed ICU nurse, Citlalli, that patient has been accepted to [facility]. Gave Citlalli room number and phone number to call report to. After Citlalli finished calling report to [facility], CYNDI called [facility] for transport. CM met with patient family and informed them that patient has been accepted to [facility] room 372 and ambulance has been called for transport. CM informed family of financial obligation with ambulance transport. Family verbalized understanding and satisfaction with discharge plan. CM will continue to follow and assist as needed with discharge planning / needs. DCP REVIEW SUMMARY ANTICIPATED D/C DATE: EXPECTED LOS : CASE STATUS: DCP Initiated INITIAL REVIEW: 03/08/2021 INITIAL REVIEWER: Natalie Huitron FINAL DISCHARGE DISPOSITION: : FINAL REVIEWER: FINAL REVIEW DATE: DCP Focus Questions & Answers QUESTION: ANSWER : PATIENT: WES WICK ENCOUNTER: [id number] MEDICAL RECORD#: [id number] ADMISSION DATE: 03/08/2021 DISCHARGE DATE: 03/18/2021 ATTENDING MD: JOSE MORENO : AGE: 66 MARITAL STATUS: M DC PLAN ID: [id number] FACILITY: [facility] PRINTED ON: 03/21/21 8:25 CT All edits/amendments must be made on the electronic document DICTATION DATE: 03/21/21824 HEALTH CARE CONSULTANT: ERWIN 03/21/21824 RPT#: [id number] DC DATE:03/18/21 STATUS: DIS IN [facility] [address] [place] [address] END OF REPORT
== END 2021-03-18 12:03 | disposition short-term general hospital (02) | DRG 380 ==
LOC: D.ER 17:51 → D.ICU 21:01
PROVIDERS: Family Medicine; Internal Medicine Pulmonary Disease; ADMIT Family Medicine; ATTEND Family Medicine
DX: K26.5 Chronic or unspecified duodenal ulcer with perforation (principal); K66.1 Hemoperitoneum; G92 Toxic encephalopathy; J90 Pleural effusion, not elsewhere classified; F17.200 Nicotine dependence, unspecified, uncomplicated; E78.5 Hyperlipidemia, unspecified; F32.9 Major depressive disorder, single episode, unspecified; F10.20 Alcohol dependence, uncomplicated; J44.9 Chronic obstructive pulmonary disease, unspecified; Z86.73 Personal history of transient ischemic attack (TIA), and cerebral infarction without residual deficits; K21.9 Gastro-esophageal reflux disease without esophagitis; N18.9 Chronic kidney disease, unspecified; I12.9 Hypertensive chronic kidney disease with stage 1 through stage 4 chronic kidney disease, or unspecified chronic kidney disease; E87.6 Hypokalemia